=== PATIENT | male | born 1980 | race Hispanic/Latino ===

== ENCOUNTER 2023-04-09 03:13 | Emergency (ER) | payer BC ==
[~2023-04-09] VITALS: Ht 165.1 cm; Wt 81.6 kg
[~2023-04-09 03:13] MED LIST: NO MEDS
[2023-04-09 03:35] VITALS: O2SAT 96
== END 2023-04-09 04:30 | disposition home or self-care (01) ==
LOC: FSED 03:36
DX: S01.81XA Laceration without foreign body of other part of head, initial encounter (principal); W22.8XXA Striking against or struck by other objects, initial encounter; Y92.59 Other trade areas as the place of occurrence of the external cause; I10 Essential (primary) hypertension
CPT/HCPCS: 99282